=== PATIENT | female | born 1940 | race Caucasian/White ===

== ENCOUNTER 2018-07-22 15:09 | Emergency (ER) | payer OTHER, MEDICAID ==
[~2018-07-22] VITALS: Ht 157.5 cm; Wt 117.9 kg
[~2018-07-22 15:09] MED LIST: ADVAIR 250-501 EACH INH; ALLEGRA ALLERG180 MG PO; AMITRIPTYLINE H10 M1; AMITRIPTYLINE H10 M1 PO; ARTIFICIAL TEAR15 M1; ARTIFICIAL TEAR15 M1 OPHTHALMIC; ASPIRIN81 M2 PO; ATORVASTATIN CA40 MG PO; B-COMPLEX-VITA1 EACH; BENTYL10 MG PO; CALCIUM 600 +1 EA11 PO; CALCIUM 600 +1 EAC1 PO; CENTRUM SILVER1 EAC4 PO; D-3; DOXYCYCLINE 10100 MG PO; DUONEB 2.5-0.5 M3 ML INH; EFFEXOR XR37.5 MG PO; EFFEXOR37.5 MG; FENTANYL PATCH75 MCG; FLAGYL500 MG PO; FLEXERIL PO; FLONASE 0.05%50 MCG NASAL; GLYCOLAX POWDER17 G1; K-DUR 20 MEQ T20 MEQ; LANSOPRAZOLE30 MG PO; LASIX 40 MG TAB40 M1; LATANOPROST2.5 ML OP; LEVOTHYROXINE0.05 MG PO; LOMOTIL TABLET1 EACH PO; LOSARTAN POTAS100 MG PO; MACROBID 100 M100 M1 PO; MAG-OX 400 TAB400 MG; MIRALAX255 GM PO; MULTIVITAMINS PO; NORCO 10-325 T1 EACH PO; NORVASC 5 MG TAB5 MG PO; NORVASC5 MG PO; PAXIL10 MG PO; PENNSAID150 ML; POTASSIUM99 M1 PO; PREDNISONE50 MG PO; PREMARIN0.45 MG; PREVACID 30MG C30 M1; PREVACID 30MG C30 M1 PO; PROAIR HFA8.5 GM INH; TIZANIDINE HCL4 MG PO; VALIUM5 MG PO; VITAMIN B-12500 MCG PO; VITAMIN D 5050000 I1 PO; XANAX 0.5 MG0.5 M1 PO; XANAX 0.5 MG0.5 MG PO; XANAX XR1 MG; ZANAFLEX4 MG PO; ZANTAC 150MG T150 M1 PO; ZANTAC 150MG T150 MG PO
[2018-07-22 16:20] LABS: ABSOLUTE BASOPHILS 0.1 thou/uL (0.0-0.2); ABSOLUTE EOSINOPHILS 0.2 thou/uL (0.0-0.7); ABSOLUTE LYMPHOCYTES 1.7 thou/uL (0.8-5.3); ABSOLUTE MONOCYTES 0.5 thou/uL (0.0-1.2); ABSOLUTE NEUTROPHILS 7.4 thou/uL (1.6-8.1); BASOPHILS 0.6 %; EOSINOPHILS 2.1 %; HEMATOCRIT 35.5 % (37.0-47.0); HEMOGLOBIN 11.7 gm/dL (12.0-15.0); LYMPHOCYTES 17.1 %; MCH 30.4 pg (26.0-34.0); MONOCYTES 5.4 %; MPV 7.2 fl. (7.2-11.1); NUCLEATED RBCS 0 /100WBC; PLATELET COUNT* 287 thou/uL (150-400); POLYS 74.8 %; RBC 3.86 mil/uL (4.20-5.00); RDW-CV 13.5 % (10.5-14.5); WBC 9.8 thou/uL (4.0-11.0)
[2018-07-22 16:34] LABS: CALCIUM 8.9 mg/dL (8.5-10.1); CREATININE 0.9 mg/dL (0.6-1.3); POTASSIUM 3.7 mmol/L (3.5-5.1); TOTAL BILIRUBIN 0.3 mg/dL (<0.1-1.0); TOTAL PROTEIN 6.7 g/dL (6.4-8.2)
[2018-07-22 17:06] LABS: URINE BILIRUBIN NEGATIVE (Negative); URINE BLOOD NEGATIVE (Negative); URINE CLARITY CLEAR; URINE COLOR YELLOW; URINE GLUCOSE-RANDOM NEGATIVE (Negative); URINE KETONES NEGATIVE (Negative); URINE LEUKOCYTES-REFLEX NEGATIVE (Negative); URINE NITRITE-REFLEX NEGATIVE (Negative); URINE PROTEIN NEGATIVE (Negative); URINE UROBILINOGEN 0.2 E.U./dl (0.2-1.0)
[2018-07-22 19:01] VITALS: BP 162/87
== END 2018-07-22 19:01 | disposition home or self-care (01) ==
LOC: M.ERS 15:09
PROVIDERS: Personal Emergency Response Attendant
DX: K59.00 Constipation, unspecified (principal); K62.5 Hemorrhage of anus and rectum; J44.9 Chronic obstructive pulmonary disease, unspecified; G47.30 Sleep apnea, unspecified; Z88.1 Allergy status to other antibiotic agents; Z88.0 Allergy status to penicillin; Z88.8 Allergy status to other drugs, medicaments and biological substances; Z90.710 Acquired absence of both cervix and uterus; Z90.49 Acquired absence of other specified parts of digestive tract